=== PATIENT | female | born 1955 | race Two or more races ===

== ENCOUNTER → 2017-08-15 | Outpatient (CLI) | payer OTHER | LOC: FIMAGING 14:07 | PROVIDERS: ATTEND Internal Medicine Gastroenterology | DX: R10.31 Right lower quadrant pain (principal) ==

== ENCOUNTER → 2017-08-16 | Outpatient (CLI) | payer OTHER | LOC: FIMAGING 08:15 | PROVIDERS: ATTEND Internal Medicine Gastroenterology | DX: Z18.89 Other specified retained foreign body fragments (principal); R10.31 Right lower quadrant pain ==